=== PATIENT | female | born 2000 | race Hispanic/Latino ===

== ENCOUNTER 2021-08-09 12:54 | Inpatient (IN) | payer OTHER ==
[~2021-08-09 12:54] MED LIST: Bupivacaine 0.25% HCL 30 ML VIAL ONE
[2021-08-09] MEDS ORDERED: Acetaminophen 500 MG TAB PO PRN (13:21)
[2021-08-09] MEDS ORDERED: Butorphanol Tartrate 1 MG/ML VIAL SLOW IVP PRN (13:21)
[2021-08-09] MEDS ORDERED: Ondansetron PF 4 MG/2 ML Vial IVP PRN ×3 (13:21→19:06)
[2021-08-09] MEDS ORDERED: HYDROcodone/Acetaminophen 5/325 mg Tablet PO PRN ×2 (13:21→19:06)
[2021-08-09] MEDS ORDERED: Ibuprofen 800 MG TAB PO PRN (13:21)
[2021-08-09] MEDS ORDERED: Carboprost 250 MCG/ML AMP IM PRN (13:21)
[2021-08-09] MEDS ORDERED: Lidocaine 1% (PF) 30 ML VIAL SC PRN (13:21)
[2021-08-09] MEDS ORDERED: Diphenoxylate HCl/Atropine Tablet PO PRN (13:21)
[2021-08-09] MEDS ORDERED: hydrALAZINE 20 MG/ML VIAL SLOW IVP PRN ×2 (13:21→19:06)
[2021-08-09] MEDS ORDERED: Promethazine HCl 25 MG/ML VIAL IM PRN ×3 (13:21→19:06)
[2021-08-09] MEDS ORDERED: Methylergonovine 0.2 MG/ML VIAL IM PRN (13:21)
[2021-08-09] MEDS: Lactated Ringer's 1,000 ML IV SCH ×2 (13:30→14:49)
[2021-08-09] MEDS ORDERED: NS w/ Oxytocin 30 units 500 ML IV SCH ×2 (13:30→19:06)
[2021-08-09 13:41] VITALS: BMI 28.3
[2021-08-09 13:58] LABS: Hemoglobin 13.1 g/dL (12.0-15.5); Mean Corpuscular HGB CONC 34.1 g/dL (32.0-36.0); Mean Corpuscular Hemoglobin 29.6 pg (27.0-33.0); Mean Corpuscular Volume 86.9 fl (81.6-98.3); Mean Platelet Volume 11.4 fl (7.4-10.4); Platelet Count 287 10x3/uL (150-450); Red Blood Cell (RBC) Count 4.42 10x6/uL (3.90-5.03)
[2021-08-09] MEDS ORDERED: Fentanyl 2 mcg/Bup 0.1% Cadd 100 ML ONE (14:12)
[2021-08-09 14:32] LABS: Hep B Surf Ag Non-Reactive S/CO (NonReactive); Syphilis Antibody Nonreactive (Nonreactive); Syphilis Antibody Index 0.04 S/CO (<1.00 Non-Reactive)
[2021-08-09 14:34] LABS: HBSAg Index 0.15 S/CO (0-0.99)
[2021-08-09] MEDS ORDERED: Lactated Ringer's 500 ML IV PRN (15:05)
[2021-08-09] MEDS ORDERED: Hydrocerin (Eucerin) Cream 120 gm Jar TOP PRN (15:05)
[2021-08-09] MEDS ORDERED: diphenhydrAMINE 50 MG/ML VIAL IVP PRN (15:05)
[2021-08-09] MEDS ORDERED: ePHEDrine Sulfate 50 MG/10 ML VIAL SLOW IVP PRN (15:05)
[2021-08-09] MEDS ORDERED: Acetaminophen 325 MG TAB PO PRN (15:05)
[2021-08-09] MEDS ORDERED: Naloxone HCl 0.4 mg/ml Vial IVP PRN ×2 (15:05)
[2021-08-09] MEDS ORDERED: Communication Order-Pharmacy FS SCH (15:15)
[2021-08-09] MEDS ORDERED: Fentanyl 2 mcg/Bupivacaine 0.1% Cassette 100 ML EPIDURAL SCH (15:15)
[2021-08-09] MEDS: NS w/ Oxytocin 30 units 500 ML IV SCH ×2 (15:25→15:53)
[2021-08-09 16:10] LABS: SARS-CoV-2 NAA Rapid Test Not Detected (NotDetected)
[2021-08-09] MEDS ORDERED: Ferrous Sulfate 325 MG TAB PO SCH ×2 (17:00→19:30)
[2021-08-09] MEDS ORDERED: Bisacodyl 10 MG SUPP PR PRN (19:06)
[2021-08-09] MEDS ORDERED: Lanolin Ointment 7 GM TUBE TOP PRN (19:06)
[2021-08-09] MEDS ORDERED: Benzocaine-Menthol 82.5 ML CAN TOP PRN (19:06)
[2021-08-09] MEDS ORDERED: Milk Of Magnesia 30 ML UDCUP PO PRN (19:06)
[2021-08-09] MEDS ORDERED: Preparation H Ointment 28 GM TUBE PR PRN (19:06)
[2021-08-09] MEDS ORDERED: diphenhydrAMINE 25 MG CAP PO PRN (19:06)
[2021-08-09] MEDS: Ibuprofen 800 MG TAB PO SCH (20:58)
[2021-08-09] MEDS: Docusate 100 MG CAP PO SCH (20:59)
[2021-08-10] MEDS: Ibuprofen 800 MG TAB PO SCH ×2 (05:20→13:20)
[2021-08-10] MEDS ORDERED: Ferrous Sulfate 325 MG TAB PO SCH (08:00)
[2021-08-10] MEDS ORDERED: Prenatal Vitamin 1 TAB PO SCH (09:00)
[2021-08-10] MEDS: Docusate 100 MG CAP PO SCH (09:44)
[2021-08-10 15:24] VITALS: BP 121/61; TEMP 97.8
[2021-08-10] MEDS ORDERED: Boostrix 0.5 ML (Tdap) VIAL IM ONE (19:06)
== END 2021-08-10 18:35 | disposition home or self-care (01) | DRG 807 ==
LOC: CSHLD/OP 12:54 → CSHLD 14:14 → CSHPP 17:48
PROVIDERS: ADMIT Family Medicine; ATTEND Family Medicine
PROC: 10E0XZZ Delivery of Products of Conception, External Approach (ICD-10-PCS; principal; 2021-08-09)
PROC: 0KQM0ZZ Repair Perineum Muscle, Open Approach (ICD-10-PCS; 2021-08-09)
PROC: 10907ZC Drainage of Amniotic Fluid, Therapeutic from Products of Conception, Via Natural or Artificial Opening (ICD-10-PCS; 2021-08-09)
DX: O70.1 Second degree perineal laceration during delivery (principal); Z37.0 Single live birth; Z3A.37 37 weeks gestation of pregnancy; Z20.822 Contact with and (suspected) exposure to COVID-19
CPT/HCPCS: 36415; 85027; 86780; 86850; 86900; 86901; 87340; 99285; J2590; J7120; S0020; U0002